=== PATIENT | female | born 1980 | race Caucasian/White ===

== ENCOUNTER 2016-06-20 10:25 | Emergency (ER) | payer OTHER ==
[~2016-06-20] VITALS: Ht 152.4 cm; Wt 86.2 kg
[~2016-06-20 10:25] MED LIST: ADDERALL20 MG PO; ADDERALL30 MG PO; ALBUTEROL 3 ML 33 ML INH; ALBUTEROL0.09 MG/A2 IH; ALLEGRA180 MG PO; AMOXICILLIN500 MG PO; ANAPROX DS550 MG PO; ASMANEX TW0.22 MG/AC INH; AUGMENTIN 875875 MG PO; AVPAK AZITHROM250 M1 PO; BENZONATE100 MG PO; CEPHALEXIN500 M1 PO; CIPROFLOXACIN500 MG PO; CLARITIN10 MG PO; COMBIVENT1 ARO IH; DIFLUCAN150 MG PO; DOXYCYCLINE150 M1 PO; FIORICET 325 MG1 TAB PO; FIORINAL 325 MG1 TAB PO; FLAGYL500 M1 PO; FLAGYL500 MG PO; FLONASE 0.05% 121 EA NAS; FLONASE0.05 MG/AC NS; HYDROCODONE BIT1 T11 PO; IMDUR60 MG PO; IMITREX100 MG PO; IMITREX25 MG PO; INDERAL LA120 M1 PO; INDERAL XL80 MG PO; KEFLEX500 M1 PO; KEFLEX500 MG PO; LORATADINE10 M1 PO; MEDROL DOSEPAK4 MG PO; MONTELUKAST SOD10 MG PO; MOTRIN800 MG PO; MUCINEX600 MG PO; NEURONTIN800 MG PO; OMEPRAZOLE20 MG PO; PHENERGAN W/DM120 ML PO; PHENERGAN25 M1 PO; PREDNISONE20 M1 PO; PREDNISONE20 MG PO; PRISTIQ50 MG PO; PROAIR HFA0.09 MG/AC INH; PROZAC20 MG PO; Phenergan25 MG PO; SYMBICORT1 AE1 INH; TAMIFLU 75MG CA75 MG PO; TOPICORT 0.25%15 GM PO; TORADOL10 MG PO; TRAMADOL HCL50 MG PO; VALIUM10 MG PO; VIBRAMYCIN100 MG PO; VICODIN 5/500 505 MG PO; XANAX1 MG PO; XANAX2 M1 PO; XANAX2 MG PO; ZANTAC150 MG PO; ZITHROMAX Z PA250 MG PO; ZOFRAN ODT4 MG SL; ZOFRAN ODT8 MG PO; ZYRTEC10 MG PO; ZYRTEC5 MG PO; Zofran4 MG PO; [UNRECOGNIZED DRUG - OTHER] PO
[2016-06-20 10:33] VITALS: BP 193/106
[2016-06-20] MEDS ORDERED: TOBREX OPHTH S2.5 ML OPH (12:39)
== END 2016-06-20 12:58 | disposition home or self-care (01) ==
LOC: ED 10:25
DX: S05.02XA Injury of conjunctiva and corneal abrasion without foreign body, left eye, initial encounter (principal); R03.0 Elevated blood-pressure reading, without diagnosis of hypertension; F17.200 Nicotine dependence, unspecified, uncomplicated; F41.9 Anxiety disorder, unspecified; K21.9 Gastro-esophageal reflux disease without esophagitis; F32.9 Major depressive disorder, single episode, unspecified; G43.909 Migraine, unspecified, not intractable, without status migrainosus; E66.01 Morbid (severe) obesity due to excess calories; Z68.41 Body mass index [BMI] 40.0-44.9, adult; Z98.51 Tubal ligation status; Z98.890 Other specified postprocedural states; Z88.6 Allergy status to analgesic agent; Z88.1 Allergy status to other antibiotic agents; Y08.89XA Assault by other specified means, initial encounter; Y93.89 Activity, other specified; Y92.89 Other specified places as the place of occurrence of the external cause; Y99.9 Unspecified external cause status

== ENCOUNTER → 2016-08-29 | Outpatient (CLI) | payer OTHER ==
[~2016-08-29] MED LIST changes: +TOBREX OPHTH S2.5 ML OPH
== END | disposition home or self-care (01) ==
LOC: RAD 14:45
DX: S89.91XA Unspecified injury of right lower leg, initial encounter (principal); Z91.81 History of falling; X58.XXXA Exposure to other specified factors, initial encounter; Y93.89 Activity, other specified; Y92.89 Other specified places as the place of occurrence of the external cause; Y99.8 Other external cause status

== ENCOUNTER 2016-12-28 11:14 | Emergency (ER) | payer OTHER ==
[~2016-12-28] VITALS: Ht 152.4 cm; Wt 99.8 kg
[2016-12-28 11:47] VITALS: BP 146/74
[2016-12-28 12:21] LABS: BASO % 0.2 % (0.0-1.0); EOS # 0.2 10*3/uL (0.0-0.4); EOS % 1.3 % (1.0-4.0); HEMATOCRIT 40.4 % (37.0-47.0); HEMOGLOBIN 13.7 g/dl (12.0-16.0); LYMPH # 3.8 10*3/uL (1.3-4.4); LYMPH % 29.9 % (27.0-41.0); MEAN CELL VOLUME 88.6 fl (81.0-99.0); MEAN CORPUSCULAR HGB CONC 33.9 g/dl (33.0-37.0); MEAN PLATELET VOLUME 8.5 fl (9.6-12.3); MONO # 0.9 10*3/uL (0.1-1.0); MONO % 7.1 % (3.0-9.0); NEUT # 7.8 10*3/uL (2.3-7.9); PLATELET COUNT AUTOMATED 371 10*3/uL (130-400); RED BLOOD COUNT 4.56 10*6/uL (4.10-5.10); RED CELL DISTRI WIDTH 13.7 % (0-14.5); WHITE BLOOD COUNT 12.8 10*3/uL (4.8-10.8)
[2016-12-28 12:35] LABS: ALKALINE PHOSPHATASE 113 U/L (45-117); BUN 6 mg/dl (7-24); CHLORIDE 104 mmol/L (98-107); LIPASE 87 U/L (73-393); POTASSIUM 3.8 mmol/L (3.5-5.1); SGOT/AST 28 IU/L (3-35); SGPT/ALT 37 U/L (12-78); SODIUM 139 mmol/L (136-145); TOTAL PROTEIN 6.5 gm/dL (6.4-8.2)
[2016-12-28 13:01] VITALS: BP 125/70
--- NOTE | 2016-12-28 13:02 | NUR ---
REPORT RECEIVED FROM GHULAM. IV INSERTED. IV FLUIDS STARTED. PT MEDICATED WITH DEMEROL AND ZOFRAN PER EMAR FOR C/O RUQ PAIN AND MID EPI PAIN.VITALS STABLE.--JULIÁN MARQUES RN
[2016-12-28 13:25] VITALS: BP 136/89
[2016-12-28] MEDS ORDERED: Zofran4 MG PO (15:08)
[2016-12-28] MEDS ORDERED: NORCO 10-325 T1 EACH PO (15:08)
== END 2016-12-28 15:38 | disposition home or self-care (01) ==
LOC: ED 11:14 → EDHOLD 14:40 → ED 14:40 → EDHOLD 14:57 → 4E 14:57 → ED 15:38
PROVIDERS: Emergency Medicine
DX: K80.50 Calculus of bile duct without cholangitis or cholecystitis without obstruction (principal); R10.11 Right upper quadrant pain; F17.200 Nicotine dependence, unspecified, uncomplicated; G43.909 Migraine, unspecified, not intractable, without status migrainosus; K21.9 Gastro-esophageal reflux disease without esophagitis; Z88.1 Allergy status to other antibiotic agents; Z88.6 Allergy status to analgesic agent

== ENCOUNTER → 2017-02-01 | Outpatient (CLI) | payer OTHER ==
[~2017-02-01] MED LIST changes: +NORCO 10-325 T1 EACH PO
== END | disposition home or self-care (01) ==
LOC: RAD 10:41
DX: M54.5 Low back pain (principal)

== ENCOUNTER 2017-02-13 10:23 | Emergency (ER) | payer OTHER ==
[~2017-02-13] VITALS: Ht 152.4 cm; Wt 90.7 kg
[2017-02-13 10:35] VITALS: BP 150/97
[2017-02-13 11:13] LABS: BILIRUBIN NEGATIVE (NEGATIVE); BLOOD 1+ (NEGATIVE); CLARITY CLEAR (CLEAR); COLOR YELLOW (YELLOW); GLUCOSE NEGATIVE (NEGATIVE); KETONE NEGATIVE (NEGATIVE); LEUKO ESTERASE NEGATIVE (NEGATIVE); NITRITE NEGATIVE (NEGATIVE); PH 5.5 (5.0-9.0); SPECIFIC GRAVITY <= 1.005 (1.005-1.030); UROBILINOGEN 0.2 E.U./dl (0.2-1.0)
[2017-02-13 11:29] LABS: EPITHELIAL CELLS 15-20
[2017-02-13] MEDS ORDERED: DIFLUCAN150 MG PO (11:52)
== END 2017-02-13 13:28 | disposition home or self-care (01) ==
LOC: ED 10:23
PROVIDERS: Nurse Practitioner Family
DX: B37.3 Candidiasis of vulva and vagina (principal); F17.200 Nicotine dependence, unspecified, uncomplicated; Z88.1 Allergy status to other antibiotic agents; Z88.8 Allergy status to other drugs, medicaments and biological substances; Z79.899 Other long term (current) drug therapy; Z98.51 Tubal ligation status

== ENCOUNTER → 2021-01-20 | Outpatient (CLI) | payer OTHER | LOC: WOUNDCARE 00:32 | PROVIDERS: ATTEND Nurse Practitioner Family | DX: T81.31XA Disruption of external operation (surgical) wound, not elsewhere classified, initial encounter (principal); F17.200 Nicotine dependence, unspecified, uncomplicated; Z90.49 Acquired absence of other specified parts of digestive tract; Z90.710 Acquired absence of both cervix and uterus; Y83.8 Other surgical procedures as the cause of abnormal reaction of the patient, or of later complication, without mention of misadventure at the time of the procedure; Y92.238 Other place in hospital as the place of occurrence of the external cause ==